=== PATIENT | female | born 1960 | race Two or more races ===

== ENCOUNTER 2016-08-10 22:14 | Emergency (ER) | payer BC ==
[~2016-08-10] VITALS: Ht 165.1 cm; Wt 63.5 kg
[2016-08-10] MEDS ORDERED: NASOCORT (22:33)
[2016-08-10] MEDS ORDERED: claritin (22:34)
[2016-08-10] MEDS ORDERED: traMADol 50mg tab ORAL ONE (23:15)
[2016-08-10] MEDS ORDERED: TRAMADOL HCL50 MG ORAL (23:37)
[2016-08-11 00:06] VITALS: BP 109/68
[2016-08-11 00:07] VITALS: BP 109/68
--- NOTE | 2016-08-11 05:39 | Emergency Room Report ---
History of Present Illness General Chief Complaint: Pain Source: Patient Present Illness HPI Patient is a 56 year old female who presented after having increased right- sided chest pain. The patient having pain after a fall. She reports having fallen into the car window. She reports having pain to the right side of her chest. She reports having some moderate bruising to the side of her chest. She had increased pain with movement and deep breath. She denied loss of consciousness. Allergies: Coded Allergies: AMOXICILLIN (Verified Allergy, Unknown, 08/10/16) CETIRIZINE (Verified Allergy, Unknown, 08/10/16) TETRACYCLINE (Verified Allergy, Unknown, 08/10/16) Uncoded Allergies: PENICILLIN (Allergy, Unknown, 08/10/16) Patient History Past Medical History: see triage record Reviewed Nursing Documentation: PMH: Agreed, PSxH: Agreed Nursing Documentation-PMH Past Medical History: No Stated History Review of Systems All Other Systems: negative except mentioned in HPI Physical Exam Vital Signs Date Time Temp Pulse Resp B/P Pulse Ox O2 Delivery O2 Flow Rate FiO2 08/10/16 22:29 97.9 60 14 104/69 99 Room Air General Appearance: well appearing, no apparent distress, alert, GCS 15 Head: normocephalic, atraumatic ENT: hearing grossly normal, normal voice Neck: full range of motion, supple Respiratory: no respiratory distress, speaking full sentences Cardiovascular #1: normal inspection, normal peripheral pulses, regular rate, rhythm, no edema Gastrointestinal: normal inspection, normal bowel sounds, non tender, soft Musculoskeletal: normal inspection, back normal, no calf tenderness Neurologic: normal inspection, alert, oriented x3, normal gait Psychiatric: mood/affect normal Skin: other - slight bruising to right chest wall/breast Medical Decision Making Diagnostic Impression: Primary Impression: Contusion, chest wall Additional Impression: Knee contusion ER Course Patient presented for chest pain.Differential diagnosis included but was not limited to acute coronary syndrome, pulmonary embolism, pneumonia, aortic dissection, shingles, pneumothorax, aortic dissection, esophageal rupture, pericarditis. Patient's benign exam and does not appear to require any further laboratory testing at this time. Patient appears to be having chest wall pain related recent fall. X-ray imaging 4 views of the chest interpreted by me showed no evidence of fracture or pneumothorax.Patient was given tramadol for pain.The patient is advised to follow up with primary care doctor in 1-2 days. Patient is advised to return if any worsening condition or if any changes in status that are concerning. Last Vital Signs Date Time Temp Pulse Resp B/P Pulse Ox O2 Delivery O2 Flow Rate FiO2 08/11/16 00:07 83 18 109/68 100 Room Air 08/10/16 22:29 97.9 Status: improved Disposition: HOME, SELF-CARE Condition: Stable Scripts Tramadol Hcl* (ULTRAM*) 50 Mg Tablet 50 MG ORAL Q6H Y for For Pain, #14 TAB 0 Refills Prov: Alphonso Rivera 08/10/16 Referrals: NOT CHOSEN IPA/MD,REFERRING Patient Instructions: Chest Wall Pain Alphonso Rivera Aug 11, 2016 05:39
--- NOTE | 2016-08-11 11:06 | Diagnostic Imaging Report ---
Indication: PAIN, status post fall Technique: One view of the chest, multiple views of the right ribs Comparison: None Findings: The lungs and pleural spaces are clear. Heart size is normal. No rib fracture demonstrated. No pneumothorax. Impression: Negative
== END 2016-08-11 00:05 | disposition home or self-care (01) ==
LOC: EMR 23:00
DX: S20.219A Contusion of unspecified front wall of thorax, initial encounter (principal); S80.00XA Contusion of unspecified knee, initial encounter; Z88.1 Allergy status to other antibiotic agents; Z88.0 Allergy status to penicillin; W19.XXXA Unspecified fall, initial encounter; Y92.810 Car as the place of occurrence of the external cause; Y99.8 Other external cause status
CPT/HCPCS: 99283